=== PATIENT | male | born 1980 | race Caucasian/White ===

== ENCOUNTER 2020-06-02 21:09 | Inpatient (IN) | payer OTHER ==
[~2020-06-02] VITALS: Ht 177.8 cm; Wt 74.0 kg
[2020-06-02 22:03] LABS: BASO % 0 % (0-3); CALCIUM 8.9 mg/dL (8.5-10.1); EOS # 0.1 x10^3/uL (0.0-0.7); EOS % 0 % (0-3); GFR 81.9; HEMATOCRIT 39.9 % (39.0-53.0); HEMOGLOBIN 13.2 g/dL (13.0-17.5); LYMPH # 0.8 x10^3/uL (1.0-4.8); LYMPH % 4 % (24-48); MEAN CORPUSCULAR HEMOGLOBIN 32 pg (25-35); MEAN CORPUSCULAR HGB CONC 33 g/dL (31-37); MEAN CORPUSCULAR VOLUME 96 fL (79-100); MONO # 0.8 x10^3/uL (0.0-1.1); MONO % 4 % (0-9); NEUT # 21.1 x10^3uL (1.8-7.7); NEUT % 92 % (31-73); PLATELET COUNT 396 x10^3/uL (140-400); POTASSIUM 3.9 mmol/L (3.5-5.1); RED BLOOD COUNT 4.15 x10^6/uL (4.30-5.70); RED CELL DISTRIBUTION WIDTH 13.6 % (11.5-14.5); WHITE BLOOD COUNT 22.8 x10^3/uL (4.0-11.0)
--- NOTE | 2020-06-02 22:03 | PHYS DOC ---
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 States that over the last 2 weeks he has had intermittent daily fevers, worse in the afternoon and night sweats. States that 2 weeks ago he called his survey research teacher and was started on prednisone and has had a taper, currently down to 5 mg from 20 mg. States he is also had over the last couple of days and intermittent dry cough, fatigue and over the last 2 nights has had to sleep sitting up as laying completely back is uncomfortable and sitting up does help with the epigastric/chest discomfort. Also endorses discomfort in the low chest/epigastrium with deep breathing. States he is otherwise eating and drinking normally for him. States he is making urine and stool normally for him with no blood in either. Denies chest pain, abdominal pain, nausea, vomiting, diarrhea, dysuria, hematuria. Denies any recent travel or known ill contacts. States that his family at home has no symptoms. Review of Systems Review of Systems Review of systems otherwise unremarkable except noted in HPI Physical Exam Physical Exam Constitutional: Well developed, well nourished, no acute distress, non-toxic appearance. [] HENT: Normocephalic, atraumatic, bilateral external ears normal, oropharynx moist, no oral exudates, nose normal. [] Eyes: conjunctiva normal, no discharge. [] Neck: Normal range of motion, no tenderness, supple, no stridor. [] Cardiovascular: Tachycardia, regular rhythm, no murmurs or rubs appreciated, POC bedside ultrasound shows gross ejection fraction probably normal, with apparent normal valve opening and closing. Probable tiny pericardial effusion Lungs & Thorax: Bilateral breath sounds clear to auscultation [] Abdomen: soft, no tenderness, no masses, no pulsatile masses. [] Skin: Warm, dry, appears to have petechiae on forearms and legs as well as scattered across the abdomen Back: No tenderness, no CVA tenderness. [] Extremities: No tenderness, no cyanosis, no clubbing, ROM intact, no edema. [] Neurologic: Alert and oriented X 3, normal motor function, normal sensory function, no focal deficits noted. [] Psychologic: Affect normal, judgement normal, mood normal. [] EKG EKG Rate of 109, QRS of 90, QTc of 405, no STEMI [] Radiology/Procedures Radiology/Procedures []FINDINGS: The cardiomediastinal silhouette is within normal limits. Lungs are clear. There are no significant pleural effusions. There is no pulmonary vascular congestion. No pneumothorax. No suspicious osseous abnormality. IMPRESSION: There is no acute cardiopulmonary process. Electronically signed by: Bouchra Yu MD (06/02/2020 10:18 PM) [facility] CT ABDOMEN+PELVIS W History: .Epigastric pain.HX STILLS DISEASE Comparison: None. Technique: After administration of intravenous contrast, helical CT of the abdomen and pelvis was performed from the lung bases through the ischial tuberosities. Coronal and sagittal reconstructions were obtained. 75 mL of Omnipaque 300 were used. One or more of the following dose reduction techniques were utilized: Automated exposure control (AEC), Adjustment of mA and/or kV according to patient size, Use of iterative reconstruction technique such as ASiR, CT scan done according to ALARA and image gently/image wisely Abdomen Findings: The visualized lung bases are clear. The liver, gallbladder, pancreas, spleen, and bilateral adrenal glands are normal. Symmetric renal enhancement. There is no focal renal mass. There is no hydronephrosis. The visualized loops of small bowel are normal. The visualized loops of large bowel are normal. There is no evidence of bowel obstruction. Appendix is normal. There is no free fluid. There is no mesenteric or retroperitoneal adenopathy. The abdominal aorta is normal in caliber. Pelvis Findings: Urinary bladder is normal. No pelvic free fluid. There is no pelvic or inguinal adenopathy. There is no acute bony abnormality. L1 hemangioma. IMPRESSION: No acute findings. Electronically signed by: Bola Salas MD (06/02/2020 11:17 PM) [facility] Heart Score C/O Chest Pain: No Risk Factors: Risk Factors: DM, Current or recent (<one month) smoker, HTN, HLP, family history of CAD, obesity. Risk Scores: Risk Factors: DM, Current or recent (<one month) smoker, HTN, HLP, family history of CAD, obesity. Course & Med Decision Making Course & Med Decision Making Patient is a 40-year-old male with a history of still disease who presents with intermittent fever over 2 weeks, body aches, fatigue, dry cough and petechiae Vital signs notable for tachycardia and fever. Patient placed on the monitor with IV access established. Started on IV fluid resuscitation. Given GI cocktail. Given morphine for pain. POC bedside ultrasound noted above, with possible tiny pericardial effusion. EKG noted above with no STEMI. Troponin not concerning. Chest x-ray not concerning. CT of the abdomen pelvis not concerning. Laboratory analysis notable for neutrophilic leukocytosis, elevated CRP, normal lactate. Given patient is immunocompromised on methotrexate and prednisone is presenting with a fever of unknown origin and immunocompromised, cultures were obtained and patient started on antibiotics in the ED. Discussed all findings with patient and recommended admission for continued evaluation and treatment of his fever of unknown origin. Patient grateful, verbalized understanding and agreed with plan of admission. Dragon Disclaimer Dragon Disclaimer This electronic medical record was generated, in whole or in part, using a voice recognition dictation system. Departure Departure: Impression: Primary Impression: Fever Additional Impression: Epigastric discomfort Disposition: ADMITTED INPT THIS HOSP Admitting Physician: Leela Maldonado Condition: IMPROVED Referrals: GUS NELSON (PCP) Problem Qualifiers JOSE MOODY MD Jun 02, 2020 22:03
--- NOTE | 2020-06-02 22:14 | EKG ---
[facility] ED [facility] [address] [place] [id number] Test Date: 2020-06-02 Test Time: 21:58:17 Pat Name: MARYBEL ENCINAS Department: Room: Gender: M Insurance Healthcare Consultant: SANJUANA : 1980 Requested By: JOSE MOODY Order Number: [id number] Reading MD: Measurements Intervals [place] Rate: 109 P: -18 TX: 168 QRS: 0 QRSD: 90 T: 33 QT: 300 QTc: 405 Interpretive Statements SINUS TACHYCARDIA LEFTWARD AXIS OTHERWISE NORMAL ECG RI6.02 No previous ECG available for comparison
[2020-06-02 22:18] LABS: ALBUMIN 3.3 g/dL (3.4-5.0); ALBUMIN/GLOBULIN RATIO 0.8 (1.0-1.7); TOTAL BILIRUBIN 0.4 mg/dL (0.2-1.0); TOTAL PROTEIN 7.4 g/dL (6.4-8.2)
--- NOTE | 2020-06-02 22:20 | RAD ---
XR CHEST 1V 06/02/2020 9:45 PM INDICATION: Shortness of breath COMPARISON: None available TECHNIQUE: Portable frontal view of the chest is provided. FINDINGS: The cardiomediastinal silhouette is within normal limits. Lungs are clear. There are no significant pleural effusions. There is no pulmonary vascular congestion. No pneumothora x. No suspicious osseous abnormality. IMPRESSION: There is no acute cardiopulmonary process. Electronically signed by: Bouchra Yu MD (06/02/2020 10:18 PM) [facility]
[2020-06-02 22:28] LABS: C REACTIVE PROTEIN 253.6 mg/L (0-3.3)
[2020-06-02] MEDS ORDERED: LIDO:MAALOX 1:1 20 ML SINGLE DOSE. PO ONE (22:30)
[2020-06-02] MEDS ORDERED: IV RINGERS SOLUTION,LACTATED 1,000 ML IV ONE (22:30)
[2020-06-02] MEDS ORDERED: MORPHINE SULFATE 4 MG/ML DISP.SYRIN. IV ONE (22:30)
[2020-06-02] MEDS ORDERED: CONTRAST GIVEN. MC PRN (22:45)
[2020-06-02 22:53] LABS: % BANDS 5 % (0-9); % EOS 1 % (0-5); % LYMPHS 1 % (24-48); % MONOS 1 % (0-10); % SEGS 92 % (35-66); PLT ESTIMATE ADEQUATE (ADEQUATE)
[2020-06-02] MEDS ORDERED: IOHEXOL 300 MG/ML 75 ML VIAL. IV ONE (23:00)
--- NOTE | 2020-06-02 23:19 | RAD ---
CT ABDOMEN+PELVIS W History: .Epigastric pain.HX STILLS DISEASE Comparison: None. Technique: After administration of intravenous contrast, helical CT of the abdomen and pelvis was per formed from the lung bases through the ischial tuberosities. Coronal and sagittal reconstructions wer e obtained. 75 mL of Omnipaque 300 were used. One or more of the following dose reduction techniques were utilized: Automated exposure control (AEC), Adjustment of mA and/or kV according to patient size , Use of iterative reconstruction technique such as ASiR, CT scan done according to ALARA and image g ently/image wisely Abdomen Findings: The visualized lung bases are clear. The liver, gallbladder, pancreas, spleen, and bilateral adrenal glands are normal. Symmetric renal enhancement. There is no focal renal mass. There is no hydronephrosis. The visualized loops of small bowel are normal. The visualized loops of large bowel are normal. There is no evidence of bowel obstruction. Appendix is normal. There is no free fluid. There is no mesenteric or retroperitoneal adenopathy. The abdominal aorta is normal in caliber. Pelvis Findings: Urinary bladder is normal. No pelvic free fluid. There is no pelvic or inguinal adenopathy. There is no acute bony abnormality. L1 hemangioma. IMPRESSION: No acute findings. Electronically signed by: Bola Salas MD (06/02/2020 11:17 PM) [facility]
[2020-06-02 23:45] LABS: BACTERIA,URINE 0 /HPF (0-FEW); BILIRUBIN,URINE NEG (NEG); CLARITY,URINE CLEAR; COLOR,URINE YELLOW; GLUCOSE,URINE NEG (NEG); NITRITE,URINE NEG (NEG); RBC,URINE 0 /HPF (0-2); SQUAMOUS EPITHELIAL CELL,UR OCC /LPF; UROBILINOGEN,URINE 0.2 mg/dL (0.2 mg/dL); WBC,URINE RARE /HPF (0-4)
[2020-06-03] MEDS ORDERED: CEFEPIME HCL 2 GM in IV NORMAL SALINE 100ML 100 ML IV SCH
--- NOTE | 2020-06-03 01:14 | NUR ---
The patient, MARYBEL ENCINAS, 40 y/o, M admitted by AL KAPOOR MD, was given written information regarding hospital policies, unit procedures and contact persons. Valuables were checked and left with pt.
[2020-06-03] MEDS ORDERED: METH2.5T PO (01:56)
[2020-06-03] MEDS ORDERED: LORA-627 PO (01:56)
[2020-06-03] MEDS ORDERED: PRED20TA PO (01:56)
[2020-06-03] MEDS ORDERED: OMEP20TA63 PO (01:56)
[2020-06-03] MEDS ORDERED: FOLI0.8C PO (01:56)
[2020-06-03] MEDS ORDERED: ACETAMINOPHEN 325 MG TABLET PO PRN (02:00)
[2020-06-03] MEDS ORDERED: IV NORMAL SALINE 1,000ML 1,000 ML IV ONE (02:30)
[2020-06-03 02:44] VITALS: BP 126/73
[2020-06-03 07:47] VITALS: BP 112/68
[2020-06-03] MEDS ORDERED: MORPHINE SULFATE 4 MG/ML DISP.SYRIN. IV PRN (08:00)
[2020-06-03 08:08] LABS: HEMATOCRIT 37.2 % (39.0-53.0); HEMOGLOBIN 12.4 g/dL (13.0-17.5); RED BLOOD COUNT 3.85 x10^6/uL (4.30-5.70); RED CELL DISTRIBUTION WIDTH 13.4 % (11.5-14.5)
[2020-06-03 08:17] LABS: ALBUMIN 2.6 g/dL (3.4-5.0); ALBUMIN/GLOBULIN RATIO 0.6 (1.0-1.7); CALCIUM 8.5 mg/dL (8.5-10.1); CREATININE 0.9 mg/dL (0.7-1.3); GFR 92.5; TOTAL BILIRUBIN 0.5 mg/dL (0.2-1.0); TOTAL PROTEIN 6.7 g/dL (6.4-8.2)
[2020-06-03] MEDS: CEFEPIME HCL 2 GM in IV NORMAL SALINE 100ML 100 ML IV SCH ×2 (08:52→14:30)
[2020-06-03] MEDS ORDERED: DEXAMETHASONE SOD PHOS 10 MG/ML VIAL. IVP SCH (09:00)
[2020-06-03 14:41] VITALS: BP 120/77
--- NOTE | 2020-06-03 19:06 | HP ---
ADMIT DATE: HISTORY OF PRESENT ILLNESS: The patient is a 40-year-old male patient who came to the Emergency Room with a chief complaint of fevers, and stated that over the last 2 weeks, he has had intermittent daily fevers, worse in the afternoon and night sweats. States that 2 weeks ago, he called his carpenter helper hardwood flooring and was started on prednisone as a taper, currently down to 5 mg from 20 mg. States he also had over the last couple of days intermittent dry cough, fatigue, and over the last 2 nights, he had to sleep sitting up as lying completely back is uncomfortable and sitting up does help with epigastric and chest discomfort. He also endorses discomfort in the lower chest, epigastric with deep breathing. He states he is otherwise eating and drinking normally for him. He states he is making urine and stool normally for him with no blood in either. He denied any chest pain, abdominal pain, nausea, vomiting, diarrhea, dysuria, hematuria. Denied any recent travel or known ill contact. He stated that his family is at home, has no symptoms. He also developed a skin rash, which is petechial, prominent on his upper and lower extremities and also on his torso, symmetrical around the line of the socks on his both legs, some of these rashes are confluent and almost like ecchymotic. However, he denied any bleeding when he brushes his teeth. Denied any epistaxis or hemoptysis. He was extensively investigated in the Emergency Room and his white cell count was found to be high at 22,800 with a manual differential showing 92% polymorphs, 4% lymphocytes and 4% monocytes. His chemistry was largely unremarkable; however, C-reactive protein was high at 253 mg/dL. His prothrombin time, INR and aPTT are normal. Urinalysis was essentially unremarkable. The patient has had a chest x-ray, which showed that the cardiomediastinal silhouette is within normal limits. Lungs are clear. There is no significant pleural effusion. There is no pulmonary vascular congestion, pneumothorax, no suspicious osseous abnormality. He did have a CT scan of the abdomen and pelvis with IV contrast, which basically showed the liver, gallbladder, pancreas, spleen and bilateral adrenal glands are normal, symmetrical enhancement, there is no focal adrenal mass. There is no hydronephrosis. The visualized loops of small bowel are normal. The visualized loops of the large bowel are normal. There is no evidence of bowel obstruction. Appendix is normal. There is no free fluid. There is no mesenteric or retroperitoneal adenopathy. The abdominal aorta is normal in course and caliber and his urinary bladder is normal. No pelvic free fluid. There is no pelvic or inguinal adenopathy. There is no acute bony abnormality. He has had an L1 hemangioma. The patient was admitted with a diagnosis of fever and epigastric discomfort with possible COVID infection; however, the patient himself did feel that this is probably a relapse of his Still's disease that he has not had since he was recently diagnosed in 2013. PAST MEDICAL HISTORY: Significant for Still's disease, apparently diagnosed in 2013 while he was in [facility] and was in the hospital there for 8 days and eventually he was transferred to [place] and eventually came to [facility]. He was treated with chemotherapy for HLHL and eventually he was diagnosed with Still's disease in 2014, and since then, he was followed by his carpenter helper hardwood flooring, Dr. Swetha Lopez, the carpenter helper hardwood flooring at the [facility] [employer]. He has other medical problems including nephrolithiasis for which he underwent cystoscopy and retrograde ureteroscopy and retrieval of the stone in 2016. ALLERGIES: He has no known drug allergies. MEDICATIONS: He is currently on following medications: He is currently on loratadine, pseudoephedrine one tablet daily. He is on methotrexate 2.5 mg; he takes 15 mg once a week every Saturday. He is on omeprazole 20 mg once a day, prednisone 20 mg tapering fashion, folic acid 800 mcg once a day. FAMILY HISTORY: The patient has no full brothers or sisters. His father at the age of 49 because of severe emphysema. Mother at the age of 63 because of breast cancer and COPD, probably radiation-induced pulmonary fibrosis. SOCIAL HISTORY: He is . He has 2 daughters, ages 13 and 16. He does not smoke, drinks alcohol occasionally. He does not use any illicit drugs. He is in active duty. REVIEW OF SYSTEMS: As per history of present illness. In summary, this is a 40-year-old male patient who was diagnosed with COVID on 05/27/2018 at [facility] and he was released from quarantine, as the releases patients' from the start of the symptoms and not test positivity according to him. The test was done probably was a rapid testing, was not the nucleic acid amplification test. His lab work on arrival here showed a white cell count of 22,800, hemoglobin 13, hematocrit 39, MCV 96, and platelet count 396,000 with a manual differential showed 92% polymorphs, 4% lymphocytes and 4% monocytes. His chemistry showed a serum sodium 139, potassium 3.9, chloride 100, bicarbonate 29, anion gap of 10, BUN 17, creatinine 1, estimated GFR was 82 mL per minute. His glucose 119, calcium was 8.9, lactic acid was 1.4. Total bilirubin, AST, ALT, alkaline phosphatase were normal. C-reactive protein was high at 253. Total protein was 7.4, albumin was 3.3. In summary, this is a 40-year-old male patient who was admitted with intermittent fever that has been going on for almost 3 weeks according to him. His fever relapsed after he tapered his steroids. From the patient's point of view, he feels that this is more of a flare-up of his Still's disease rather than COVID, as he is doing very well during daytime and his fever spikes usually in the evening and during which he becomes very tired and achy with drenching sweats according to him. We did start him on IV antibiotic in the form of cefepime, intermittent morphine and Tylenol together with Decadron. My plan is to contact his carpenter helper hardwood flooring and decide to assist with his management. AL KAPOOR MD DR: KORINA/lissett JOB#: [id number] / [id number]
[2020-06-03] MEDS ORDERED: LACTOBACILLUS RHAMNOSUS GG 1 CAPSULE. PO SCH (21:00)
[2020-06-04] MEDS ORDERED: FOLIC ACID 1 MG TABLET PO SCH (09:00)
--- NOTE | 2020-06-06 11:21 | NUR ---
Call to pt to notify of negative COVID results. Pt is still concerned about blood cultures, understands that these have not resulted in our inbox.
== END 2020-06-03 18:00 | disposition home or self-care (01) | DRG 547 ==
LOC: ER 21:09 → 1 SOUTH 23:34
PROVIDERS: ADMIT Internal Medicine; ATTEND Internal Medicine
DX: M06.1 Adult-onset Still's disease (principal); Z20.822 Contact with and (suspected) exposure to COVID-19; Z80.3 Family history of malignant neoplasm of breast; Z82.5 Family history of asthma and other chronic lower respiratory diseases; Z87.442 Personal history of urinary calculi; Z92.21 Personal history of antineoplastic chemotherapy; R07.89 Other chest pain; D18.09 Hemangioma of other sites
CPT/HCPCS: 36415; 71045; 74177; 80053; 81001; 83605; 83690; 84484; 85007; 85025; 85027; 85610; 85730; 86140; 87040; 93005; 96361; 96374; J0692; J1100; J2270; J7120; U0003; 99285-25; J7030

== ENCOUNTER 2020-11-11 04:51 | Emergency (ER) | payer OTHER ==
[~2020-11-11] VITALS: Ht 177.8 cm; Wt 70.9 kg
[~2020-11-11 04:51] MED LIST: FOLI0.8C PO; LORA-627 PO; METH2.5T PO; OMEP20TA63 PO; PRED20TA PO
[2020-11-11] MEDS ORDERED: LIDOCAINE 1%/EPI 1:100,000 20 ML VIAL. ONE (05:13)
[2020-11-11] MEDS ORDERED: LIDOCAINE 1%/EPI 1:100,000 10 ML VIAL. INJ ONE (05:15)
[2020-11-11] MEDS ORDERED: LIDOCAINE 1%/EPI 1:100,000 20 ML VIAL. IJ ONE (05:30)
[2020-11-11 05:35] LABS: BASO # 0.1 x10^3/uL (0.0-0.2); BASO % 1 % (0-3); EOS # 0.2 x10^3/uL (0.0-0.7); EOS % 1 % (0-3); HEMATOCRIT 31.4 % (39.0-53.0); HEMOGLOBIN 10.3 g/dL (13.0-17.5); LYMPH # 1.1 x10^3/uL (1.0-4.8); LYMPH % 9 % (24-48); MEAN CORPUSCULAR HEMOGLOBIN 30 pg (25-35); MEAN CORPUSCULAR HGB CONC 33 g/dL (31-37); MEAN CORPUSCULAR VOLUME 92 fL (79-100); MONO # 0.5 x10^3/uL (0.0-1.1); MONO % 4 % (0-9); NEUT # 10.8 x10^3uL (1.8-7.7); NEUT % 85 % (31-73); PLATELET COUNT 390 x10^3/uL (140-400); RED BLOOD COUNT 3.42 x10^6/uL (4.30-5.70); RED CELL DISTRIBUTION WIDTH 17.6 % (11.5-14.5); WHITE BLOOD COUNT 12.8 x10^3/uL (4.0-11.0)
[2020-11-11 05:38] LABS: CALCIUM 8.2 mg/dL (8.5-10.1); CREATININE 0.7 mg/dL (0.7-1.3); GFR 123.7; POTASSIUM 3.5 mmol/L (3.5-5.1)
[2020-11-11 05:40] LABS: C REACTIVE PROTEIN 131.9 mg/L (0-3.3)
[2020-11-11] MEDS ORDERED: KETOROLAC 15 MG/ML VIAL. IVP ONE (05:45)
--- NOTE | 2020-11-11 05:45 | PHYS DOC ---
Past History Past Medical History: Kidney Stones, Other Additional Past Medical Histor: STILL's disease (PEG BORDEN DO) Past Surgical History: Other Additional Past Surgical Histo: kidney stones (PEG BORDEN DO) Alcohol Use: Rarely (PGE BORDEN DO) General Adult EDM: Chief Complaint: ELBOW PROBLEM HPI: HPI: 40-year-old male with a history of stills disease on methotrexate presents to the emergency department complaining of left elbow swelling and pain for the last several days. He reports he cannot flex or extend his elbow and it is held approximately 90 degrees secondary to pain. He reports pain of his arm area and distal to the elbow. He denies any symptoms in any other joints. Denies trauma or injury to the area. The patient denies nausea, vomiting, fever, chills, chest pain, shortness of breath, abdominal pain, urinary symptoms, cough, recent trauma, or any other complaints. (PEG BORDEN DO) Review of Systems: Review of Systems: ROS is otherwise negative except what was mentioned in HPI. (PEG BORDEN DO) Family History: Family History: Noncontributory (PEG BORDEN DO) Current Medications: Current Meds: Current Medications Medications (Trade) Dose Ordered Sig/Fazal Start Time Stop Time Status Last Admin Dose Admin Ketorolac Tromethamine (Toradol 15mg Vial) 15 mg 1X ONCE 11/11/20 05:45 11/11/20 05:46 UNV Lidocaine/ Epinephrine (Xylocaine 1%-Epi 1:100,000) 20 ml 1X ONCE 11/11/20 05:30 11/11/20 05:31 DC (PEG BORDEN DO) Allergies: Allergies: Allergies Coded Allergies Type Severity Reaction Last Updated Verified No Known Drug Allergies 06/02/20 No (PEG BORDEN DO) Physical Exam: PE: Constitutional: No acute distress, non-toxic appearance. HENT: Atraumatic, bilateral external ears normal, nose normal. Neck: Normal range of motion, supple, no stridor. Cardiovascular: Heart rate regular rhythm. 2+ radial pulses Lungs & Thorax: No respiratory distress, symmetrical expansion. Bilateral breath sounds clear to auscultation Abdomen: Soft, no tenderness Skin: Warm, dry. Extremities: Left elbow: Soft tissue swelling is appreciated around the left elbow, area is warm to touch, no overlying skin erythema is appreciated, no crepitus. Range of motion is severely limited in the left elbow joint, there is pain with any passive range of motion of the elbow in all planes Neurologic: Alert and oriented X 3, normal motor function of the left hand, normal sensory function of the left hand, no focal deficits noted. Non ataxic gait. GCS 15. Psychologic: Affect normal, judgment normal, mood normal. (PEG BORDEN DO) Current Patient Data: Labs: Laboratory Tests Test 11/11/20 05:13 White Blood Count 12.8 x10^3/uL (4.0-11.0) H Red Blood Count 3.42 x10^6/uL (4.30-5.70) L Hemoglobin 10.3 g/dL (13.0-17.5) L Hematocrit 31.4 % (39.0-53.0) L Mean Corpuscular Volume 92 fL (79-100) Mean Corpuscular Hemoglobin 30 pg (25-35) Mean Corpuscular Hemoglobin Concent 33 g/dL (31-37) Red Cell Distribution Width 17.6 % (11.5-14.5) H Platelet Count 390 x10^3/uL (140-400) Neutrophils (%) (Auto) 85 % (31-73) H Lymphocytes (%) (Auto) 9 % (24-48) L Monocytes (%) (Auto) 4 % (0-9) Eosinophils (%) (Auto) 1 % (0-3) Basophils (%) (Auto) 1 % (0-3) Neutrophils # (Auto) 10.8 x10^3uL (1.8-7.7) H Lymphocytes # (Auto) 1.1 x10^3/uL (1.0-4.8) Monocytes # (Auto) 0.5 x10^3/uL (0.0-1.1) Eosinophils # (Auto) 0.2 x10^3/uL (0.0-0.7) Basophils # (Auto) 0.1 x10^3/uL (0.0-0.2) Erythrocyte Sedimentation Rate Pending Vital Signs: Vital Signs Date Time Temp Pulse Resp B/P (MAP) Pulse Ox O2 Delivery O2 Flow Rate FiO2 11/11/20 04:56 97.5 82 16 135/83 (100) 98 Room Air (PEG BORDEN DO) Radiology/Procedures: Radiology/Procedures: Indication: Left elbow swelling, rule out septic arthritis Consent: Verbal consent was obtained after discussion of risks and benefits with the patient Procedure: The left elbow was positioned appropriately and the landmarks were identified. Local anesthesia was 1% lidocaine with epinephrine. The area was then prepped and draped in the usual sterile fashion. A needle was then introduced into the joint space at which point 4 cc of straw-colored fluid was obtained. A sterile dressing was then applied to the site. The patient tolerated the procedure well. Complications: None (PEG BORDEN DO) Impressions: Left elbow x-rays 3 views HISTORY: Left elbow swelling. FINDINGS: Abnormal displacement of the fat pads to suggest the presence of a joint effusion, in the setting of trauma this would also raise the possibility of a radiographically occult intra-articular fracture. In light of this no fracture is evident. No dislocation. No arthritic change. Mild soft tissue edema along the medial elbow adjacent of the medial humeral condyle. IMPRESSION: No fracture or dislocation evident. Abnormal displacement of the fat pads of the elbow suggesting the presence of a joint effusion. In the setting of trauma this would also raise the possibility of a radiographically occult fracture. Electronically signed by: Quentin Perry MD (11/11/2020 6:05 AM) [facility] [place] DICTATED AND SIGNED BY: QUENTIN PERRY MD DATE: 11/11/20 0602 CC: PEG BORDEN DO; GUS NELSON ~MTH0 0 (JAMES BAKER DO) Heart Score: C/O Chest Pain: No (PEG BORDEN DO) Course & Med Decision Making: Course & Med Decision Making Due to concern for possible septic arthritis versus stills disease pathology, a elbow arthrocentesis was performed at the bedside. Culture and cell count were ordered. Patient's case was signed out to Dr. Baker at 0600 (PEG BORDEN DO) Course & Med Decision Making I spoke with the lab and we are unable to get a cell count or Gram stain at this facility. We will get now helpful results in a timely manner. I reevaluated the patient and the elbow was not hot to the touch. Based on the description my colleague gave of the fluid, infection seems less likely though possible. We will call the patient with his results when they come back tomorrow. If his condition worsens in any way or he develops a fever, I have advised that he come back to the emergency room. He is also welcome to call with any and all questions. He is stable for discharge at this time. (JAMES BAKER DO) Departure Departure: Impression: Primary Impression: Still's disease of adult Additional Impression: Effusion of elbow joint, left Disposition: 01 HOME / SELF CARE / HOMELESS Condition: STABLE Referrals: GUS NELSON (PCP) Patient Instructions: Elbow Effusion-Brief PEG BORDEN DO Nov 11, 2020 05:45 JAMES BAKER DO Nov 11, 2020 06:35
--- NOTE | 2020-11-11 06:07 | RAD ---
Left elbow x-rays 3 views HISTORY: Left elbow swelling. FINDINGS: Abnormal displacement of the fat pads to suggest the presence of a joint effusion, in the s etting of trauma this would also raise the possibility of a radiographically occult intra-articular f racture. In light of this no fracture is evident. No dislocation. No arthritic change. Mild soft tiss ue edema along the medial elbow adjacent of the medial humeral condyle. IMPRESSION: No fracture or dislocation evident. Abnormal displacement of the fat pads of the elbow carson ggesting the presence of a joint effusion. In the setting of trauma this would also raise the possibi lity of a radiographically occult fracture. Electronically signed by: Rick Perry MD (11/11/2020 6:05 AM) [facility]
[2020-11-11 06:30] LABS: SEDIMENTATION RATE 95 (0-15)
[2020-11-11 06:57] VITALS: BP 128/80
== END 2020-11-11 07:00 | disposition home or self-care (01) ==
LOC: ER 04:51
DX: M08.2 Juvenile rheumatoid arthritis with systemic onset (principal); M25.422 Effusion, left elbow; Z87.442 Personal history of urinary calculi
CPT/HCPCS: 20605; 36415; 73080; 80048; 85025; 85651; 86140; 96374; 99284; J1885